=== PATIENT | male | born 1965 | race Caucasian/White ===

== ENCOUNTER 2020-09-19 15:08 | Inpatient (IN) ==
[2020-09-19] MEDS ORDERED: Naloxone 0.4 MG/ML INJ IVP PRN (19:37)
[2020-09-19] MEDS ORDERED: Dextrose Gel 15 GM/37.5 ML TUBE PO PRN ×2 (20:08)
[2020-09-19] MEDS ORDERED: D5% in Water 1,000 ML IVC PRN (20:08)
[2020-09-19] MEDS ORDERED: *HR* Dextrose 50 % in Water (Vial) 50 ML VIAL IVP PRN (20:08)
[2020-09-19] MEDS: Dexamethasone 4 MG/ML VIAL IVP SCH (21:37)
[2020-09-19 23:42] LABS: Protein/Creatinine Ratio,Urine 0.93 mg/mg (0.00-0.20); Sodium, Urine 25.1 mEq/L
[2020-09-19] MEDS ORDERED: Acetaminophen 325 MG TABLET PO PRN (23:48)
[2020-09-20 05:50] LABS: Basophils % 0.2 %; Hematocrit 37.2 % (37.5-50.1); Hemoglobin 11.9 g/dL (12.9-16.9); Immature Granulocytes % 1.7 % (0-4); Lymphocytes # 0.8 K/mcL (0.6-4.6); Mean Corpuscular Hemoglobin 29.6 pg (28.0-33.3); Mean Corpuscular Volume 92.5 fL (83.0-100.0); Mean Platelet Volume 10.8 fL (9.4-12.4); Monocytes # 0.3 K/mcL (0.0-1.3); Monocytes % 3.7 %; Neutrophils # 6.9 K/mcL (1.6-8.9); Platelet Count 206 K/mcL (140-400); Red Blood Count 4.02 M/mcL (4.19-5.50); Red Cell Distribution Width 13.7 % (11.5-14.5); Segmented Neutrophils % 84.4 %; White Blood Count 8.2 K/mcL (4.3-11.1)
[2020-09-20 05:53] LABS: Activated Partial Thrombo Time 33.9 Seconds (26.0-36.0); INR 1.2; Prothrombin Time 14.2 Seconds (9.4-12.1)
[2020-09-20] MEDS: *HR* Heparin 5,000 UNIT/ML VIAL SQ SCH ×4 (06:05→22:25)
[2020-09-20 06:08] LABS: Albumin 3.6 g/dL (3.5-5.7); Albumin/Globulin Ratio 1.1 (1.1-2.2); Bilirubin,Total 0.5 mg/dL (0.3-1.0); Calcium 8.5 mg/dL (8.6-10.3); Globulin 3.2 g/dL (2.4-3.5); Potassium 4.8 mEq/L (3.5-5.1); Total Protein 6.8 g/dL (6.4-8.9)
[2020-09-20 06:24] LABS: Ferritin 604 ng/mL (20-250)
[2020-09-20 07:34] LABS: Estimated Average Glucose 206 mg/dl
[2020-09-20] MEDS: Insulin LISPRO 300 UNITS/3 ML VIAL SQ SCH ×4 (08:49→22:26)
[2020-09-20] MEDS: Dexamethasone 4 MG/ML VIAL IVP SCH (08:51)
[2020-09-20 11:02] LABS: C-Reactive Protein 214 mg/L (Less than 10)
[2020-09-20] MEDS ORDERED: Ringers Solution, Lactated 500 ML IVC ONE (11:58)
[2020-09-20] MEDS ORDERED: Insulin DETEMIR 100 UNIT/ML X5UNITS SQ SCH ×4 (12:00→21:00)
[2020-09-20] MEDS ORDERED: Insulin DETEMIR 100 UNIT/ML X5UNITS SQ ONE (16:24)
[2020-09-20] MEDS ORDERED: Insulin LISPRO 300 UNITS/3 ML VIAL SQ ONE (16:25)
[2020-09-20] MEDS ORDERED: 0.9 % Sodium Chloride 250 ML IVC SCH (17:00)
[2020-09-20] MEDS: Azithromycin 500 MG in 0.9 % Sodium Chloride 250 ML IVPB SCH (17:13)
[2020-09-20] MEDS: cefTRIAXone 2,000 MG in Water for inj. (sterile) 20 ML IVP SCH (17:13)
[2020-09-20] MEDS ORDERED: Insulin LISPRO 300 UNITS/3 ML VIAL SQ SCH (21:00)
[2020-09-21] MEDS: *HR* Heparin 5,000 UNIT/ML VIAL SQ SCH ×3 (05:59→20:42)
[2020-09-21 07:03] LABS: Hematocrit 35.7 % (37.5-50.1); Hemoglobin 11.5 g/dL (12.9-16.9); Mean Corpuscular HGB Conc 32.2 g/dL (31.6-35.5); Mean Corpuscular Hemoglobin 29.1 pg (28.0-33.3); Mean Corpuscular Volume 90.4 fL (83.0-100.0); Mean Platelet Volume 10.6 fL (9.4-12.4); Platelet Count 251 K/mcL (140-400); Red Blood Count 3.95 M/mcL (4.19-5.50); Red Cell Distribution Width 13.6 % (11.5-14.5); White Blood Count 7.5 K/mcL (4.3-11.1)
[2020-09-21 07:24] LABS: BUN/Creatinine Ratio 22 (6-26); Blood Urea Nitrogen 28 mg/dL (6-20); Calcium 9.1 mg/dL (8.6-10.3); Carbon Dioxide 23 mEq/L (23-29); Chloride 105 mEq/L (98-107); Glucose 320 mg/dL (70-105); Osmolality,Calculated 300 (280-300); Potassium 4.3 mEq/L (3.5-5.1); Sodium 136 mEq/L (136-145); eGFR For African Americans > 60 (> 60); eGFR For Non-African Americans 58 (> 60)
[2020-09-21] MEDS: Insulin LISPRO 300 UNITS/3 ML VIAL SQ SCH ×7 (08:46→20:44)
[2020-09-21] MEDS: Dexamethasone 4 MG/ML VIAL IVP SCH (08:47)
[2020-09-21] MEDS ORDERED: Insulin DETEMIR 100 UNIT/ML X5UNITS SQ SCH (09:00)
[2020-09-21] MEDS ORDERED: traZODone 50 MG TABLET PO PRN (15:28)
[2020-09-21] MEDS: Azithromycin 500 MG in 0.9 % Sodium Chloride 250 ML IVPB SCH (15:39)
[2020-09-21] MEDS: Gabapentin 300 MG CAPSULE PO SCH ×2 (15:39→20:43)
[2020-09-21] MEDS: Aspirin Enteric Coated 81 MG Tablet PO SCH (15:39)
[2020-09-21] MEDS: cefTRIAXone 2,000 MG in Water for inj. (sterile) 20 ML IVP SCH (15:40)
[2020-09-21] MEDS: Insulin DETEMIR 100 UNIT/ML X5UNITS SQ SCH (22:58)
[2020-09-22] MEDS: *HR* Heparin 5,000 UNIT/ML VIAL SQ SCH ×2 (05:48→13:01)
[2020-09-22] MEDS: Gabapentin 300 MG CAPSULE PO SCH ×2 (09:31→16:43)
[2020-09-22] MEDS: Aspirin Enteric Coated 81 MG Tablet PO SCH (09:31)
[2020-09-22] MEDS: Insulin LISPRO 300 UNITS/3 ML VIAL SQ SCH ×4 (09:31→12:59)
[2020-09-22] MEDS: Dexamethasone 4 MG/ML VIAL IVP SCH (09:31)
[2020-09-22] MEDS: Insulin DETEMIR 100 UNIT/ML X5UNITS SQ SCH (09:37)
[2020-09-22 12:00] LABS: Hematocrit 35.9 % (37.5-50.1); Hemoglobin 11.5 g/dL (12.9-16.9); Mean Corpuscular Hemoglobin 29.1 pg (28.0-33.3); Mean Corpuscular Volume 90.9 fL (83.0-100.0); Mean Platelet Volume 10.4 fL (9.4-12.4); Platelet Count 322 K/mcL (140-400); Red Blood Count 3.95 M/mcL (4.19-5.50); Red Cell Distribution Width 13.6 % (11.5-14.5); White Blood Count 7.1 K/mcL (4.3-11.1)
[2020-09-22 12:16] LABS: BUN/Creatinine Ratio 24 (6-26); Blood Urea Nitrogen 30 mg/dL (6-20); Calcium 9.5 mg/dL (8.6-10.3); Carbon Dioxide 24 mEq/L (23-29); Chloride 106 mEq/L (98-107); Glucose 280 mg/dL (70-105); Osmolality,Calculated 302 (280-300); Potassium 4.1 mEq/L (3.5-5.1); Sodium 138 mEq/L (136-145); eGFR For African Americans > 60 (> 60); eGFR For Non-African Americans 59 (> 60)
[2020-09-22 12:40] VITALS: BP 148/82
[2020-09-22] MEDS ORDERED: Azithromycin 250 MG TABLET PO SCH (16:00)
[2020-09-22] MEDS ORDERED: FLU Vac QV 20-21 (6Month+)/PF 0.5 ML SYRINGE IM ONE (16:25)
[2020-09-22] MEDS: cefTRIAXone 2,000 MG in Water for inj. (sterile) 20 ML IVP SCH (16:27)
== END 2020-09-22 17:30 | disposition home or self-care (01) | DRG 177 ==
LOC: 2NENU
PROVIDERS: ADMIT Student in an Organized Health Care Education/Training Program; ATTEND Student in an Organized Health Care Education/Training Program